=== PATIENT | male | born 1950 | race Caucasian/White ===

== ENCOUNTER 2018-09-27 11:33 | Emergency (ER) | payer OTHER ==
[~2018-09-27] VITALS: Ht 172.7 cm; Wt 71.8 kg
[2018-09-27 11:34] VITALS: Ht 172.7 cm; Wt 71.8 kg
[2018-09-27] MEDS ORDERED: ASPIRIN 325 MG TAB PO ONE (12:00)
--- NOTE | 2018-09-27 12:13 | STROKE ---
Date/Time of Note Date/Time of Note DATE: 09/27/18 TIME: 11:55 Patient Information General Patient location: emergency Arrival Date Age 67 Gender male Weight 71.82 kg Vital Signs Vital Signs Vital Signs Date Temp Pulse Resp B/P (MAP) Pulse Ox O2 O2 Flow FiO2 Time Delivery Rate 09/27/18 97.7 87 19 149/70 98 11:34 (96) History & Physical Patient History Notes Pt Hx Reviewed History of Present Illness 67yo DM, HTN, presents with left sided weakness. Onset 11am. No blood thinn ers. Patient reports he dropped off his at 10am, then ate breakfast and suddenly developed weakness and slurred speech. Review of Systems Constitutional: no symptoms reported EENTM: no symptoms reported Respiratory: no symptoms reported Cardiovascular: no symptoms reported Gastrointestinal: no symptoms reported Genitourinary: no symptoms reported Musculoskeletal: no symptoms reported Psychiatric/Neurological: no symptoms reported All Other Systems: Reviewed and Negative NIH Stroke Scale NIH Stroke Scale [id number] l4d LOC Questions: Yxspl5w LOC Commands: Ofyao7w t Gaze: Umwlq1m Xgetc9z alsy: Wgbyp3t rm - Left: Ezdqy7w t: Wunsj4k eft: Huhzs5q t: Qpbib5z Voljc8h Mhzky2o est Language: Bzvkp2s estelle: Ztkyz7m Qmaot0r 4Bd Total Score: Ndplc0r Date/Time Recorded DATE: 09/27/18 TIME: 11:55 Submitted By Silver Munoz t-PA Imaging Review Imaging Reviewed: Yes Date/Time Imaging Reviewed DATE: 09/27/18 TIME: 11:[address] Head- no acute changes t-PA Administration Recommendation: Yes Weight 71.82 kg Recommedation submitted by Silver Munoz Recommendations Impression Diagnosis ischemic stroke Disposition spoke with Dr. Kumar, They plan [facility] Recommendation 67yo M presents with acute onset left sided weakness. Neurological exam is notable for left arm and leg drift and left face, arm, and leg numbness. I believe the patient is having an acute ischemic stroke. I discussed the risks, benefits, and alternatives of IV TPA in detail with the patient who is agreeable to my recommendation for IV TPA.I recommend post-TPA orders be followed. I recommend blood pressure be maintained less than 180/105. I recommend further workup include MRI Brain without gadolinium, MRA of the head without gadolinium, MRA of the neck with gadolinium, and transthoracic echocardiogram.Per Dr. Kumar, patient is being transferred to [facility]. [id number] Post t-PA Order recommendation: Izbtg5y Document q15 min vitals Document q15 min neuro checks Document q15 min bleeding checks Refer to t-PA Order Sets [id number] Diagnostic Labs: Tuuma0m Lipid Proile Hgb A1C CMP CBC w/Diff Coags [id number] Therapy: Ppaaq8q Physical Therapy Speech Therapy Occupational Therapy [place] [facility] [place]: Rumda0g Bedside Swallow Evaluation Pnumatic Compression Devices Avoid Hill Catheter Stroke Education Smoking Education SILVER MUNOZ Sep 27, 2018 12:06
[2018-09-27] MEDS ORDERED: ALTEPLASE 100 MG INJ IV* ONE (12:30)
[2018-09-27] MEDS ORDERED: SOD CHLORIDE 0.9% 50 ML IV ONE (12:30)
[2018-09-27] MEDS ORDERED: ALTEPLASE (tPA) 1 MG/ML BOLUS SYG IV* ONE (12:30)
[2018-09-27] MEDS ORDERED: LOSA100T15 PO (12:56)
[2018-09-27] MEDS ORDERED: ROSU10TA55 PO (12:56)
[2018-09-27] MEDS ORDERED: LANT3I SC (12:57)
[2018-09-27] MEDS ORDERED: METF750T2 PO (12:57)
[2018-09-27] MEDS ORDERED: INSU3INS2 SQ (12:58)
[2018-09-27] MEDS ORDERED: NIFE90TA11 PO (12:58)
[2018-09-27 13:00] VITALS: BP 114/72; PULSE 69; RESP 20
--- NOTE | 2018-09-27 13:00 | ERD ---
ER Documentation Chief Complaint Chief Complaint LEFT SIDED WEAKNESS; DIZZINESS; DIFFICULTY TALKING STARTED 30 MINS AGO HPI Patient is a 67-year-old male with hypertension and diabetes who presents with weakness. The patient had left arm and left leg weakness and left-sided facial droop. The patient said that the symptoms started 1 hour ago. He has had no treatment as of yet. ROS All systems reviewed and are negative except as per history of present illness. Allergies Allergies: Coded Allergies: cefazolin (Verified Allergy, Unknown, 09/27/18) PMhx/Soc Positive for diabetes and hypertension FmHx Family History: diabetes Physical Exam Vitals Vital Signs Date Temp Pulse Resp B/P (MAP) Pulse Ox O2 O2 Flow FiO2 Time Delivery Rate 09/27/18 76 16 123/68 96 12:45 (86) 09/27/18 81 16 112/71 97 12:30 (85) 09/27/18 98.3 74 20 112/71 95 Room Air 12:30 (85) 09/27/18 Nasal 12:20 Cannula 09/27/18 81 16 121/67 97 12:20 (85) 09/27/18 Nasal 12:18 Cannula 09/27/18 78 18 123/68 96 12:15 (86) 09/27/18 98.3 86 20 132/71 98 Room Air 12:00 (91) 09/27/18 97.7 87 19 149/70 98 11:34 (96) Physical Exam Const: No acute distress Head: Atraumatic Eyes: Normal Conjunctiva ENT: Left-sided facial droop Neck: Full range of motion. No meningismus. Resp: Clear to auscultation bilaterally Cardio: Regular rate and rhythm, no murmurs Abd: Soft, non tender, non distended. Normal bowel sounds Skin: No petechiae or rashes Back: No midline or flank tenderness Ext: No cyanosis, or edema Neur: Awake and alert, left-sided facial droop, weakness of the left upper and left lower extremity 4 out of 5, decreased hopper attendant strength on the left Result Diagram: 09/27/18 1141 09/27/18 1141 Results 24 hrs Laboratory Tests Test 09/27/18 11:41 White Blood Count 6.5 10^3/ul Red Blood Count 4.65 10^6/ul Hemoglobin 13.4 g/dl Hematocrit 39.6 % Mean Corpuscular Volume 85.2 fl Mean Corpuscular Hemoglobin 28.8 pg Mean Corpuscular Hemoglobin Concent 33.8 g/dl Red Cell Distribution Width 12.1 % Platelet Count 224 10^3/UL Mean Platelet Volume 10.2 fl Immature Granulocytes % 0.300 % Neutrophils % 66.7 % Lymphocytes % 20.5 % Monocytes % 7.4 % Eosinophils % 3.9 % Basophils % 1.2 % Nucleated Red Blood Cells % 0.0 /100WBC Immature Granulocytes # 0.020 10^3/ul Neutrophils # 4.3 10^3/ul Lymphocytes # 1.3 10^3/ul Monocytes # 0.5 10^3/ul Eosinophils # 0.3 10^3/ul Basophils # 0.1 10^3/ul Nucleated Red Blood Cells # 0.0 10^3/ul Prothrombin Time 11.9 Sec Prothrombin Time Ratio 0.9 INR International Normalized Ratio 0.87 Activated Partial Thromboplast Time 33.2 Sec Sodium Level 138 mmol/L Potassium Level 4.1 mmol/L Chloride Level 102 mmol/L Carbon Dioxide Level 25 mmol/L Anion Gap 11 Blood Urea Nitrogen 16 mg/dl Creatinine 1.32 mg/dl Est Glomerular Filtrat Rate mL/min 54 mL/min Glucose Level 388 mg/dl Hemoglobin A1c 10.4 % Calcium Level 9.0 mg/dl Creatine Kinase 96 IU/L Creatine Kinase Index 0.5 Creatinine Kinase MB (Mass) 0.45 ng/ml Troponin I < 0.012 ng/ml Triglycerides Level 177 mg/dl Cholesterol Level 142 mg/dl LDL Cholesterol, Calculated 70 mg/dl HDL Cholesterol 37 mg/dl Cholesterol/HDL Ratio 3.8 RATIO Ethyl Alcohol Level < 10.0 mg/dl Current Medications Medications Dose Sig/Gloria Start Time Status Last (Trade) Ordered Route PRN Stop Time Admin Dose Reason Admin Aspirin 325 mg ONCE ONCE 09/27/18 DC 09/27/18 (Aspirin) PO 12:00 12:02 09/27/18 12:01 Alteplase, 6.5 mg BOLUS OVER 1 09/27/18 DC 09/27/18 Recombinant MIN ONCE 12:30 12:20 (Activase) IV* 09/27/18 12:31 Alteplase, 58.2 mg ISCHEMIC 09/27/18 DC 09/27/18 Recombinant STROKE ONCE 12:30 12:21 (Activase) IV* 09/27/18 12:31 Sodium 50 ml @ 0 FLUSH AFTER 09/27/18 DC Chloride mls/hr TPA ONCE IV 12:30 09/27/18 12:31 Procedures/MDM EKG read by me: Rate/Rhythm: Regular rate and rhythm at a normal rate Intervals: Normal Impression: No evidence of ischemia or arrhythmia CT brain read by radiology. Chest x-ray read by radiology. Patient is a 67-year-old male with hypertension and diabetes who presents with stroke like symptoms. The timeline is as follows: 11:33 AMwalk-in 11:39 AMcode stroke called after evaluation 11:41 AMtele-neurology called 11:[address] scan 11:[address] scan 11:54 AMDrMatt Munoz called back and will evaluate the patient 12:05 PMDr[address] Tammy recommended TPA and TPA was ordered by myself 12:07 [facility] and Dr. Hutton accepted the patient for transfer for higher level of care The patient has an acute stroke likely MCA in origin. The patient was given TPA within the 60-minute door to needle time. The patient was also given aspirin. NIH stroke scale was done by nursing. Bedside swallow evaluation was performed before any p.o. medications. The patient will be transferred for higher level of care as we do not have interventional neurology at [facility]. Critical Care: Time: 35 minutes excluding all billable procedures. Treatments/Evaluations: Close monitoring and treatment of unstable vital signs, cardiorespiratory, and neurologic status, while maintaining tight balance of fluid, respiratory, and cardiac interventions. Departure Diagnosis: Primary Impression: Stroke CVA mechanism: unspecified Qualified Codes: I63.9 - Cerebral infarction, unspecified Condition: Critical RAFAEL ALMONTE MD Sep 27, 2018 13:00
[2018-09-27] MEDS ORDERED: INSULIN LISPRO 100 UNIT/ML VIAL SC ONE (13:30)
== END 2018-09-27 13:40 | disposition short-term general hospital (02) ==
LOC: E/R 11:33
DX: I63.9 Cerebral infarction, unspecified (principal); R93.0 Abnormal findings on diagnostic imaging of skull and head, not elsewhere classified
CPT/HCPCS: 36415; 37195; 70450; 71045; 80048; 80061; 80307; 82550; 82553; 82962; 83036; 84484; 85025; 85610; 85730; 93005; 96372; 99291; J1815; J2997